=== PATIENT | female | born 1950 | race Caucasian/White ===

== ENCOUNTER 2018-09-15 11:36 | Emergency (ER) | payer MEDICARE, OTHER ==
[~2018-09-15] VITALS: Ht 167.6 cm; Wt 78.5 kg
[~2018-09-15 11:36] MED LIST: ALPR0.5T6 PO; ASCO100065 PO; BIOT300T4 PO; CALC1TAB PO; CETI10CA PO; EZET10TA18 PO; GLUC1TAB26 PO; GUAI600T47 PO; IBAN150T15 PO; LISI-334 PO; PANT20TA2 PO; POTA10TA12 PO; SITA1TAB11 PO; TRAM50TA PO; VITA150T PO; VITA400C6 PO
[2018-09-15 11:52] VITALS: BP 164/74
--- NOTE | 2018-09-15 12:01 | PHYS DOC ---
Past Medical History Past Medical History: Diabetes-Type II Adult General Chief Complaint Chief Complaint: DENTAL PROBLEM HPI HPI Patient is a 67 year old female who presents with right upper dental pain. Patient has been battling this for the past month. She has been on Augmentin despite her penicillin allergy without any complications. 5 days ago she was started on clindamycin again without any improvement. Patient notes that her blood sugar was 179 this morning, she is a diabetic patient. She denies any trauma or fever. Nothing seems to make the discomfort better or worse. It is moderate to severe in intensity.[] Review of Systems Review of Systems Constitutional: Denies fever or chills [] Eyes: Denies change in visual acuity, redness, or eye pain [] HENT: Denies nasal congestion or sore throat [] Respiratory: Denies cough or shortness of breath [] Cardiovascular: No chest pain or palpitations[] GI: Denies abdominal pain, nausea, vomiting, bloody stools or diarrhea [] : Denies dysuria or hematuria [] Musculoskeletal: Denies back pain or joint pain [] Integument: Denies rash or skin lesions [] Neurologic: Denies headache, focal weakness or sensory changes [] Endocrine: Denies polyuria or polydipsia [] All other systems were reviewed and found to be within normal limits, except as documented in this note. Current Medications Current Medications Current Medications Medications (Trade) Dose Ordered Sig/Judah Start Time Stop Time Status Last Admin Dose Admin Info (CONTRAST GIVEN -- Rx MONITORING) 1 each PRN DAILY PRN 09/15/18 12:45 09/17/18 12:44 Iohexol (Omnipaque 300 Mg/ml) 70 ml 1X ONCE 09/15/18 13:00 09/15/18 13:01 DC 09/15/18 13:05 70 ML Ketorolac Tromethamine (Toradol 15mg Vial) 15 mg 1X ONCE 09/15/18 12:15 09/15/18 12:23 DC 09/15/18 12:42 15 MG Allergies Allergies Allergies Coded Allergies Type Severity Reaction Last Updated Verified Penicillins Allergy Intermediate 10/01/15 No Sulfa (Sulfonamide Antibiotics) Allergy Intermediate 10/01/15 No Physical Exam Physical Exam Constitutional: Well developed, well nourished, no acute distress, non-toxic appearance. [] HENT: Normocephalic, atraumatic, bilateral external ears normal, oropharynx moist, no oral exudates, nose normal. No intraoral oral abscess noted. Mild right maxillary sinus tenderness to percussion. There Is no significant gingival edema. [] Eyes: PERRLA, EOMI, conjunctiva normal, no discharge. [] Neck: Normal range of motion, no tenderness, supple, no stridor. [] Cardiovascular:Heart rate regular rhythm, no murmur [] Lungs & Thorax: Bilateral breath sounds clear to auscultation [] Abdomen: Not examined[] Skin: Warm, dry, no erythema, no rash. [] Back: No tenderness, no CVA tenderness. [] Extremities: No tenderness, no cyanosis, no clubbing, ROM intact, no edema. [] Neurologic: Alert and oriented X 3, normal motor function, normal sensory function, no focal deficits noted. [] Psychologic: Affect normal, judgement normal, mood normal. [] Current Patient Data Vital Signs Vital Signs Date Time Temp Pulse Resp B/P (MAP) Pulse Ox O2 Delivery O2 Flow Rate FiO2 09/15/18 11:52 97.9 96 18 164/74 (104) 96 Room Air 97.9 Lab Values Laboratory Tests Test 09/15/18 12:05 White Blood Count 8.2 x10^3/uL (4.0-11.0) Red Blood Count 4.56 x10^6/uL (3.50-5.40) Hemoglobin 14.8 g/dL (12.0-15.5) Hematocrit 44.3 % (36.0-47.0) Mean Corpuscular Volume 97 fL (79-100) Mean Corpuscular Hemoglobin 33 pg (25-35) Mean Corpuscular Hemoglobin Concent 34 g/dL (31-37) Red Cell Distribution Width 12.8 % (11.5-14.5) Platelet Count 184 x10^3/uL (140-400) Neutrophils (%) (Auto) 77 % (31-73) H Lymphocytes (%) (Auto) 15 % (24-48) L Monocytes (%) (Auto) 7 % (0-9) Eosinophils (%) (Auto) 1 % (0-3) Basophils (%) (Auto) 0 % (0-3) Neutrophils # (Auto) 6.3 x10^3uL (1.8-7.7) Lymphocytes # (Auto) 1.2 x10^3/uL (1.0-4.8) Monocytes # (Auto) 0.6 x10^3/uL (0.0-1.1) Eosinophils # (Auto) 0.1 x10^3/uL (0.0-0.7) Basophils # (Auto) 0.0 x10^3/uL (0.0-0.2) Sodium Level 139 mmol/L (136-145) Potassium Level 3.7 mmol/L (3.5-5.1) Chloride Level 100 mmol/L (98-107) Carbon Dioxide Level 24 mmol/L (21-32) Anion Gap 15 (6-14) H Blood Urea Nitrogen 15 mg/dL (7-20) Creatinine 0.8 mg/dL (0.6-1.0) Estimated GFR (Cockcroft-Gault) 71.3 Glucose Level 182 mg/dL (70-99) H Calcium Level 8.8 mg/dL (8.5-10.1) Laboratory Tests 09/15/18 12:05 Laboratory Tests 09/15/18 12:05 EKG EKG [] Radiology/Procedures Radiology/Procedures CT maxillofacial with contrast. HISTORY: Right upper dental pain, facial pain after root canal one month ago CT scan of the facial bones was done using 70 mL Omnipaque 300 contrast. Bone window images show the mandible is intact. There is a mucous retention cyst in the left maxillary antrum. Sinuses are otherwise clear. A facial fracture is not identified. Parotid and submandibular glands are unremarkable. There is no retropharyngeal soft tissue swelling. Epiglottis is unremarkable. There is lucency about a maxillary molar on the right suggesting a dental abscess. There are artifacts off the fillings in the teeth. Upper cervical spine is in normal alignment. IMPRESSION: 1. Maxillary dental abscess about a molar on the right. 2. No fracture noted. 3. Mucous retention cyst in the left maxillary antrum. 4. Sinuses otherwise clear.[] Course & Med Decision Making Course & Med Decision Making Pertinent Labs and Imaging studies reviewed. (See chart for details) ED course: Patient arrived, was placed in bed, and tolerated exam well. She was transported to and from [place] with any complications. After the return of laboratory and CT findings, these were discussed with the patient who voiced understanding. All questions were answered. Decision-making: It appears that there is still a dental abscess present that is failing current antibiotic therapy, will adjust antibiotic therapy given her allergies and recent antibiotic treatment. Also directed the patient to follow- up with her dentist tomorrow. There is no evidence meningitis, encephalitis, patient is nontoxic, not in DKA.[] Dragon Disclaimer Dragon Disclaimer This electronic medical record was generated, in whole or in part, using a voice recognition dictation system. Departure Departure Impression: Primary Impression: Dental abscess Disposition: HOME, SELF-CARE Condition: IMPROVED Referrals: HENRRY PERSON MD (PCP) Follow-up in 2 days Patient Instructions: Dental Abscess Additional Instructions: Follow-up with your dentist tomorrow. Continue your current antibiotic prescription as instructed. Take additional medicines as prescribed. Return to the ER if worsening pain or any other concerns. Scripts Metronidazole (FLAGYL) 500 Mg Tablet 500 MG PO QID for 10 Days, #40 TAB Prov: BURKE TREVINO DO 09/15/18 Meloxicam (MELOXICAM) 7.5 Mg Tablet 7.5 MG PO DAILY, #20 TAB Prov: BURKE TREVINO DO 09/15/18 Azithromycin (AZITHROMYCIN TABLET) 250 Mg Tablet 1 PKG PO UD, #6 TAB Prov: BURKE TREVINO DO 09/15/18 BURKE TREVINO DO Sep 15, 2018 12:01
[2018-09-15] MEDS ORDERED: KETOROLAC 15 MG/ML VIAL. IV ONE (12:15)
[2018-09-15 12:18] LABS: BASO % 0 % (0-3); EOS # 0.1 x10^3/uL (0.0-0.7); EOS % 1 % (0-3); HEMATOCRIT 44.3 % (36.0-47.0); HEMOGLOBIN 14.8 g/dL (12.0-15.5); LYMPH # 1.2 x10^3/uL (1.0-4.8); LYMPH % 15 % (24-48); MEAN CORPUSCULAR HEMOGLOBIN 33 pg (25-35); MEAN CORPUSCULAR HGB CONC 34 g/dL (31-37); MEAN CORPUSCULAR VOLUME 97 fL (79-100); MONO # 0.6 x10^3/uL (0.0-1.1); MONO % 7 % (0-9); NEUT # 6.3 x10^3uL (1.8-7.7); NEUT % 77 % (31-73); PLATELET COUNT 184 x10^3/uL (140-400); RED BLOOD COUNT 4.56 x10^6/uL (3.50-5.40); RED CELL DISTRIBUTION WIDTH 12.8 % (11.5-14.5); WHITE BLOOD COUNT 8.2 x10^3/uL (4.0-11.0)
[2018-09-15 12:22] LABS: CALCIUM 8.8 mg/dL (8.5-10.1); CREATININE 0.8 mg/dL (0.6-1.0); GFR 71.3; POTASSIUM 3.7 mmol/L (3.5-5.1)
[2018-09-15] MEDS ORDERED: CONTRAST GIVEN. MC PRN (12:45)
[2018-09-15] MEDS ORDERED: IOHEXOL 300 MG/ML 100ML VIAL. IV ONE (13:00)
--- NOTE | 2018-09-15 13:26 | RAD ---
CT maxillofacial with contrast. HISTORY: Right upper dental pain, facial pain after root canal one month ago CT scan of the facial bones was done using 70 mL Omnipaque 300 contrast. Bone window images show the mandible is intact. There is a mucous retention cyst in the left maxillary antrum. Sinuses are otherwise clear. A facial fracture is not identified. Parotid and submandibular glands are unremarkable. There is no retropharyngeal soft tissue swelling. Epiglottis is unremarkable. There is lucency about a maxillary molar on the right suggesting a dental abscess. There are artifacts off the fillings in the teeth. Upper cervical spine is in normal alignment. IMPRESSION: 1. Maxillary dental abscess about a molar on the right. 2. No fracture noted. 3. Mucous retention cyst in the left maxillary antrum. 4. Sinuses otherwise clear. PQRS Compliance Statement: One or more of the following individualized dose reduction techniques were utilized for this examination: 1. Automated exposure control 2. Adjustment of the mA and/or kV according to patient size 3. Use of iterative reconstruction technique Electronically signed by: Jack Padron MD (09/15/2018 1:23 PM) [facility]
[2018-09-15] MEDS ORDERED: METR500T PO (13:50)
[2018-09-15] MEDS ORDERED: MELO7.5T29 PO (13:50)
[2018-09-15] MEDS ORDERED: AZIT250T6 PO (13:50)
== END 2018-09-15 14:06 | disposition home or self-care (01) ==
LOC: ER 11:36
DX: K04.7 Periapical abscess without sinus (principal); E11.9 Type 2 diabetes mellitus without complications; Z88.0 Allergy status to penicillin; Z88.2 Allergy status to sulfonamides
CPT/HCPCS: 36415; 70487; 80048; 85025; 96374; 99284; J1885; Q9967

== ENCOUNTER → 2018-12-10 | Outpatient (CLI) | payer MEDICARE, OTHER ==
[~2018-12-10] MED LIST changes: +AZIT250T6 PO; +MELO7.5T29 PO; +METR500T PO
--- NOTE | 2018-12-10 13:32 | KCIC ---
EXAM: Soft tissue ultrasound, left upper arm. HISTORY: Palpable focus along left upper arm. COMPARISON: None. FINDINGS: Sonographic evaluation of the site of palpable concern posteriorly along the left upper arm was performed. This reveals a hypoechoic solid mass along the deep aspect of the subcutaneous compartment resembling a lymph node. It measures 1.5 x 0.9 x 0.4 cm. There is internal perfusion along the suggested hilus. From the lesion, another hypoechoic curvilinear region extends toward the skin surface, which may represent a draining sinus, but this is unclear. IMPRESSION: 1. A 1.5 cm mass at the site of concern resembles a lymph node, but there appears to be a sinus extending to the skin surface. Correlate for a suppurative lymph node that has drained. Recommend ongoing follow-up to resolution. This site is amenable to ultrasound-guided biopsy if the diagnosis remains unclear. Electronically signed by: Lisy Strickland MD (12/10/2018 1:29 PM) [facility]
== END | disposition home or self-care (01) ==
LOC: KCIC US 10:39
PROVIDERS: ATTEND Family Medicine
DX: R22.32 Localized swelling, mass and lump, left upper limb (principal)
CPT/HCPCS: 76881

== ENCOUNTER 2021-06-20 12:25 | Emergency (ER) | payer MEDICARE, OTHER ==
[~2021-06-20] VITALS: Ht 190.5 cm; Wt 118.0 kg
[~2021-06-20 12:25] MED LIST changes: -EZET10TA18 PO; +EZET10TA20 PO; -LISI-334 PO; +LISI20TA18 PO; +VITA-47 PO; -VITA400C6 PO
[2021-06-20] MEDS ORDERED: DEXAMETHASONE SOD PHOS 20 MG/5 ML VIAL. IV ONE (13:30)
--- NOTE | 2021-06-20 14:25 | PHYS DOC ---
Past Medical History Past Medical History: Diabetes-Type II Additional Past Medical Histor: HEART MURMUR (JOSEANNMARIE Kelley INVESTMENT TRADER) Past Surgical History: Appendectomy, Cholecystectomy, , Hysterectomy Additional Past Surgical Histo: EYE (ANNMARIE CORNELIUS INVESTMENT TRADER) Smoking Status: Never Smoker Alcohol Use: None Drug Use: None (ANNMARIE CORNELIUS INVESTMENT TRADER) General Adult EDM: Chief Complaint: FEVER HPI: HPI: Patient is a 70 year old female with hx of DM II, who presents to the ED today to be evaluated for Covid related symptoms. Patient states she was diagnosed with COVID19 last Sunday. She states she was seen at urgent care and was started on doxycycline because she had a sinus infection and ear infection as well as Covid 19. She states she is currently experiencing diarrhea, fevers, chills and not feeling well generally. She states she received Moderna Covid vaccine in December 2020. Patient denies any chest pain or shortness of breath. (ANNMARIE CORNELIUS INVESTMENT TRADER) Review of Systems: Review of Systems: Constitutional: Reports fevers, not feeling well Eyes: Denies change in visual acuity. [] HENT: Reports sinus infection sore throat. [] Respiratory: Denies cough or shortness of breath. [] Cardiovascular: Denies chest pain or edema. [] GI: Reports diarrhea Denies abdominal pain, nausea, vomiting, bloody stools : Denies dysuria. [] Musculoskeletal: Denies back pain or joint pain. [] Integument: Denies rash. [] Neurologic: Denies headache, focal weakness or sensory changes. [] Psychiatric: Denies depression or anxiety. [] (ANNMARIE CORNELIUS INVESTMENT TRADER) Heart Score: C/O Chest Pain: N/A Risk Factors: Risk Factors: DM, Current or recent (<one month) smoker, HTN, HLP, family history of CAD, obesity. Risk Scores: Score 0 - 3: 2.5% MACE over next 6 weeks - Discharge Home Score 4 - 6: 20.3% MACE over next 6 weeks - Admit for Clinical Observation Score 7 - 10: 72.7% MACE over next 6 weeks - Early Invasive Strategies (ANNMARIE CORNELIUS INVESTMENT TRADER) Current Medications: Current Medications Medications (Trade) Dose Ordered Sig/Judah Start Time Stop Time Status Last Admin Dose Admin Dexamethasone Sodium Phosphate (Decadron) 10 mg 1X ONCE 06/20/21 13:30 06/20/21 13:31 DC (ANNMARIE CORNELIUS INVESTMENT TRADER) Allergies: Allergies: Allergies Coded Allergies Type Severity Reaction Last Updated Verified Penicillins Allergy Intermediate 10/01/15 No Sulfa (Sulfonamide Antibiotics) Allergy Intermediate 10/01/15 No (ANNMARIE CORNELIUS INVESTMENT TRADER) Physical Exam: PE: Constitutional: Well developed, well nourished, no acute distress, non-toxic appearance. [] HENT: Normocephalic, atraumatic, bilateral external ears normal, oropharynx moist, no oral exudates, nose normal. [] Eyes: PERRLA, EOMI, conjunctiva normal, no discharge. [] Neck: Normal range of motion, no tenderness, supple, no stridor. [] Cardiovascular:Heart rate regular rhythm, no murmur [] Lungs & Thorax: Bilateral breath sounds clear to auscultation [] Abdomen: Bowel sounds normal, soft, no tenderness, no masses, no pulsatile masses. [] Skin: Warm, dry, no erythema, no rash. [] Back: No tenderness, no CVA tenderness. [] Extremities: No tenderness, no cyanosis, no clubbing, ROM intact, no edema. [] Neurologic: Alert and oriented X 3, normal motor function, normal sensory function, no focal deficits noted. [] Psychologic: Affect normal, judgement normal, mood normal. [] (ANNMARIE CORNELIUS INVESTMENT TRADER) Current Patient Data: Vital Signs: Vital Signs Date Time Temp Pulse Resp B/P (MAP) Pulse Ox O2 Delivery O2 Flow Rate FiO2 06/20/21 13:20 97.8 78 16 173/97 (122) 96 Room Air 97.8 (ANNMARIE CORNELIUS INVESTMENT TRADER) EKG: EK interpreted by Dr. Crenshaw sinus rhythm HR 96 no STEMI[] (ANNMARIE CORNELIUS INVESTMENT TRADER) Radiology/Procedures: Radiology/Procedures: []PROCEDURE: PORTABLE CHEST 1V XR CHEST 1V History: Reason: fever, covid + / Spl. Instructions: / History: Comparison: None. Findings: Subtle ill-defined upper and lower lung opacities. Chronic right-sided rib fracture. Impression: 1. Subtle ill-defined upper and lower lung opacities, may relate to atelectasis or developing infiltrates including viral pneumonia. Electronically signed by: Zaki Cisneros DO (06/20/2021 2:55 PM) [id number] DICTATED and SIGNED BY: ZAKI CISNEROS DO DATE: 06/20/21 [id number] (ANNMARIE CORNELIUS APRN) Course & Med Decision Making: Course & Med Decision Making Pertinent Labs and Imaging studies reviewed. (See chart for details) This is a 70-year-old female patient presenting today complaining of Covid related symptoms. She was diagnosed with COVID-19 on Sunday last week. She also had a sinus infection and ear infection and was started on doxycycline. She states she right now has diarrhea, not feeling well, chills and fevers. Vitals on arrival to the ED temperature 97.8, heart rate 78, respirations 16, O2 sats 96% on room air, blood pressure 173/97. CBC, CMP, troponin, EKG with no acute findings, Chest x-ray noted for Subtle ill-defined upper and lower lung opacities, may relate to atelectasis or developing infiltrates including viral pneumonia. Patient was given Levaquin in the ED and discharged on Levaquin. She was instructed to follow-up with the PCP next week. Provided return precautions. (ANNMARIE CORNELIUS APRN) Dragon Disclaimer: Dragon Disclaimer: This electronic medical record was generated, in whole or in part, using a voice recognition dictation system. (ANNMARIE CORNELIUS APRN) Departure Departure Impression: Primary Impression: Pneumonia Qualified Codes: J18.9 - Pneumonia, unspecified organism Disposition: HOME / SELF CARE / HOMELESS Condition: STABLE Referrals: HENRRY PERSON MD (PCP) Follow-up with your doctor in 1 week Patient Instructions: Pneumonia, Adult Additional Instructions: You were evaluated in the emergency room with Covid related symptoms. Your chest x-ray shows you have pneumonia. Take the prescribed antibiotics until completed. Stop taking the doxycycline. Please follow-up with your primary care doctor in 1 week. Scripts Dexamethasone (Decadron) 4 Mg Tablet 1 TAB PO BID for 4 Days, #8 TAB 0 Refills Prov: ANNMARIE CORNELIUS APRN 06/20/21 Levofloxacin (LEVOFLOXACIN) 500 Mg Tablet 1 TAB PO DAILY, #10 TAB Prov: ANNMARIE CORNELIUS APRN 06/20/21 Attending Signature Attending Signature I have reviewed the PA/DIESEL BUS MECHANIC's note and plan of care. I was available for consultation as needed during the patient's visit in the emergency department. I agree with the clinical impression, plan, and disposition. (KOBE CRENSHAW DO) ANNMARIE CORNELIUS INVESTMENT TRADER Jun 20, 2021 14:24 KOBE CRENSHAW DO Jun 25, 2021 23:44
[2021-06-20 14:45] LABS: BASO % 0 % (0-3); EOS % 0 % (0-3); HEMATOCRIT 42.3 % (36.0-47.0); HEMOGLOBIN 14.2 g/dL (12.0-15.5); LYMPH % 13 % (24-48); MEAN CORPUSCULAR HEMOGLOBIN 33 pg (25-35); MEAN CORPUSCULAR HGB CONC 34 g/dL (31-37); MEAN CORPUSCULAR VOLUME 98 fL (79-100); MONO # 0.6 x10^3/uL (0.0-1.1); MONO % 8 % (0-9); NEUT # 6.1 x10^3/uL (1.8-7.7); NEUT % 78 % (31-73); PLATELET COUNT 169 x10^3/uL (140-400); RED BLOOD COUNT 4.33 x10^6/uL (3.50-5.40); RED CELL DISTRIBUTION WIDTH 13.2 % (11.5-14.5); WHITE BLOOD COUNT 7.8 x10^3/uL (4.0-11.0)
--- NOTE | 2021-06-20 14:58 | RAD ---
XR CHEST 1V History: Reason: fever, covid + / Spl. Instructions: / History: Comparison: None. Findings: Subtle ill-defined upper and lower lung opacities. Chronic right-sided rib fracture. Impression: 1. Subtle ill-defined upper and lower lung opacities, may relate to atelectasis or developing infilt rates including viral pneumonia. Electronically signed by: Zaki Cisneros DO (06/20/2021 2:55 PM) [id number]
[2021-06-20 15:02] LABS: CALCIUM 8.6 mg/dL (8.5-10.1); CREATININE 0.6 mg/dL (0.6-1.0); GFR 98.5; POTASSIUM 3.8 mmol/L (3.5-5.1)
[2021-06-20 15:15] LABS: ALBUMIN 3.1 g/dL (3.4-5.0); ALBUMIN/GLOBULIN RATIO 0.9 (1.0-1.7); MAGNESIUM 1.7 mg/dL (1.8-2.4); TOTAL BILIRUBIN 0.5 mg/dL (0.2-1.0); TOTAL PROTEIN 6.6 g/dL (6.4-8.2)
[2021-06-20 15:19] LABS: CREATINE KINASE 22 U/L (26-192)
[2021-06-20 15:34] LABS: INFLUENZA A PATIENT NEGATIVE (NEGATIVE); INFLUENZA B PATIENT NEGATIVE (NEGATIVE)
[2021-06-20 15:38] LABS: BILIRUBIN,URINE NEGATIVE (NEG); CLARITY,URINE CLEAR; COLOR,URINE YELLOW; NITRITE,URINE NEGATIVE (NEG); PROTEIN,URINE NEGATIVE (NEG-TRACE); UROBILINOGEN,URINE 0.2 mg/dL (0.2 mg/dL)
[2021-06-20 15:45] LABS: BACTERIA,URINE 0 /HPF (0-FEW); RBC,URINE 0 /HPF (0-2); WBC,URINE OCC /HPF (0-4)
[2021-06-20 17:00] VITALS: BP 138/61
[2021-06-20] MEDS ORDERED: DEXA4TAB63 PO (17:12)
[2021-06-20] MEDS ORDERED: LEVO500T9 PO (17:12)
--- NOTE | 2021-06-21 03:05 | EKG ---
[facility] [address] [place] [address] Test Date: 2021-06-20 Test Time: 14:04:31 Pat Name: JANIE GARCIA Department: Room: Gender: F Board Setter: : 1950 Requested By: ANNMARIE CORNELIUS Order Number: [id number] Reading MD: Pancho Spencer Measurements Intervals [place] Rate: 96 P: -14 NH: 184 QRS: 35 QRSD: 74 T: 61 QT: 326 QTc: 418 Interpretive Statements SINUS RHYTHM ST & T ABNORMALITY, CONSIDER RECENT INFERIOR MYOCARDIAL OR PERICARDIAL DAMAGE Electronically Signed On 06-24-2021 16:52:25 [employer]ATT[employer] AND B[employer] ARTIST by Pancho Spencer
== END 2021-06-20 17:56 | disposition home or self-care (01) ==
LOC: ER 12:25
DX: J18.9 Pneumonia, unspecified organism (principal); E11.9 Type 2 diabetes mellitus without complications; Z90.49 Acquired absence of other specified parts of digestive tract; Z90.89 Acquired absence of other organs; Z90.710 Acquired absence of both cervix and uterus; Z98.890 Other specified postprocedural states; Z88.0 Allergy status to penicillin; Z88.2 Allergy status to sulfonamides
CPT/HCPCS: 36415; 71045; 80053; 81001; 82553; 83605; 83735; 83880; 84145; 84484; 85025; 87040; 87804; 93005; 96365; 96375; 99285; J1100; J1956